=== PATIENT | female | born 2000 | race Caucasian/White ===

== ENCOUNTER 2022-02-11 18:36 | Emergency (ER) | payer BC, SELFPAY ==
[2022-02-11 18:47] VITALS: BP 134/82; PULSE 80; RESP 16; TEMP 37.2; O2SAT 99; BMI 22.0
--- NOTE | 2022-02-11 19:00 | W.ED.ABDPA2 ---
HPI - Abdominal Pain General: Chief Complaint: Abdominal Pain Stated Complaint: UTI ABD Pain Time Seen by Provider: 02/11/22 18:57 History of Present Illness: 21-year-old female comes in today with complaints of bilateral flank pain, worse on the left, blood in the urine and recurrent urinary tract infections for the last 6 months. Patient reports for the last week she has had worsening discomfort and blood noted in the urine. Patient was last treated for urinary tract infection 6 months ago. Last menstrual period was 1 month ago. Associated Symptoms: Reports hematuria; Denies fever(s) Related Data: Date of Last Menstrual Period: 01/11/22 Review of Systems General: Reports: 10 or more systems reviewed and unremarkable except in HPI and below Const: Denies: fever(s) ENMT: Denies: throat pain Card: Denies: chest pain Resp: Denies: dyspnea GI: Reports: abdominal pain : Reports: flank pain and hematuria Skin/Breast: Denies: rash [facility] Female Reproductive History: Date of last menstrual period: 01/11/22 Physical Exam Const: COMMON NORMALS: alert HENMT: COMMON NORMALS: normocephalic HEAD & SCALP: normocephalic Neck/C-Spine: COMMON NORMALS: full ROM Lymph: LYMPHATIC: no lymphadenopathy noted Resp: COMMON NORMALS: normal respiratory effort and clear to auscultation bilaterally AUSCULTATION: clear to auscultation bilaterally Cardio: COMMON NORMALS: regular rate and regular rhythm RATE: regular rate RHYTHM: regular rhythm GI: COMMON NORMALS: Soft to palpation and non-tender PALPATION: Yes Soft to palpation : BLADDER/KIDNEY EXAM: Yes CVA tenderness Back/Pelvis: GENERAL BACK: Yes CVA tenderness Extremity: GENERAL: Yes normal exam except as noted Neuro: SENSORIUM/ORIENTATION: Yes alert Skin: COMMON NORMALS: no rashes or lesions noted GENERAL SKIN EXAM: no rashes or lesions noted Course Vital Signs: Vital signs: Vital Signs Temperature 98.7 F 02/11/22 21:41 Pulse Rate 65 02/11/22 21:41 Respiratory Rate 20 H 02/11/22 21:41 Blood Pressure 112/63 02/11/22 21:41 Pulse Oximetry 98 02/11/22 21:41 MDM - Abdominal Pain Medical Decision Making 21-year-old female comes in today for complaints of blood in urine. On exam abdomen soft nontender. No CVA tenderness. Respirations are even lungs are clear to auscultation. Differential diagnosis includes UTI, renal calculi, pyelonephritis. Urinalysis showed large amount of white blood cells with minimal red blood cells. Patient did have a positive test. CBC and CMP were unremarkable. Patient was treated with IV fluids and a dose of Rocephin IV. Ultrasound of the kidneys indicated no significant hydronephrosis or renal calculi. Ultrasound of the pelvis indicated no intrauterine or ectopic at this time. hCG was 14 which could indicate either a lost or very early . Patient is ABO positive and no need for RhoGAM is noted. Recommended patient recheck with primary care in 1 week. Take antibiotics as directed for urinary tract infection. Return to the ER for high fever greater than 100.4, or bleeding greater than 1 pad an hour. Lab Data : 02/11/22 19:13 02/11/22 19:13 Labs/Radiology: Radiology Impressions Ultrasound 02/11/22 20:15 IMPRESSION: 1. No intrauterine or ectopic gestation identified. This could represent a completed spontaneous miscarriage. An occult ectopic cannot be entirely excluded. Follow-up with quantitative beta HCG values recommended. Renal Ultrasound 02/11/22 20:15 IMPRESSION: 1. Mild right hydronephrosis is most likely physiologic in this patient. 2. Otherwise unremarkable exam. ADDENDUM: 02/11/222231 This study is correlated to the ultrasound Ob on 02/11/2022. There is no visible intrauterine or ectopic . The mild right hydronephrosis is of uncertain etiology. If there is clinical concern for a renal calculus, a CT scan can be performed, once the patient is confirmed to not be . Laboratory Results WBC 10.4 10^3/uL (4.0-10.0) H 02/11/22 19:13 RBC 4.55 10^6/uL (4.1-5.3) 02/11/22 19:13 Hgb 13.4 g/dL (11.5-15.3) 02/11/22 19:13 Hct 39.7 % (37.0-47.0) 02/11/22 19:13 MCV 87.3 fl (81-99) 02/11/22 19:13 MCH 29.5 pg (28.0-34.0) 02/11/22 19:13 MCHC 33.8 g/dL (30.0-36.0) 02/11/22 19:13 RDW 12.2 % (12.1-15.1) 02/11/22 19:13 Plt Count 195 10^3/cmm (130-400) 02/11/22 19:13 MPV 11.9 fL (7.4-10.4) H 02/11/22 19:13 Neut % (Auto) 62.9 % 02/11/22 19:13 Lymph % (Auto) 28.9 % 02/11/22 19:13 [place] % (Auto) 6.3 % 02/11/22 19:13 Eos % (Auto) 1.2 % 02/11/22 19:13 Baso % (Auto) 0.5 % 02/11/22 19:13 Neut # (Auto) 6.55 10^3/uL (1.8-7.7) 02/11/22 19:13 Lymph # (Auto) 3.0 10^3/uL (0.8-4.8) 02/11/22 19:13 [place] # (Auto) 0.7 10^3/uL (0.2-0.9) 02/11/22 19:13 Eos # (Auto) 0.1 10^3/uL (0.0-0.8) 02/11/22 19:13 Baso # (Auto) 0.1 10^3/uL (0.0-0.1) 02/11/22 19:13 Nucleated RBC % (auto) 0 % 02/11/22 19:13 Nucleated RBCs # 0.0 /100WBC 02/11/22 19:13 Sodium 137 mmol/L (136-145) 02/11/22 19:13 Potassium 3.8 mmol/L (3.5-5.1) 02/11/22 19:13 Chloride 103 mmol/L (98-107) 02/11/22 19:13 Carbon Dioxide 22 mmol/L (22-29) 02/11/22 19:13 Anion Gap 15.8 (5-19) 02/11/22 19:13 BUN 9 mg/dL (6-20) 02/11/22 19:13 Creatinine 0.7 mg/dL (0.5-0.9) 02/11/22 19:13 GFR Calculation 104.6 mL/min (90-130) 02/11/22 19:13 Glucose 93 mg/dL (65-115) 02/11/22 19:13 Calculated Osmolality 282 mOsm/kg (285-295) L 02/11/22 19:13 Calcium 9.0 mg/dL (8.5-10.5) 02/11/22 19:13 Total Bilirubin 0.5 mg/dL (0.15-1.2) 02/11/22 19:13 AST 15 U/L (0-32) 02/11/22 19:13 ALT 12 U/L (0-33) 02/11/22 19:13 Alkaline Phosphatase 66 IU/L (35-105) 02/11/22 19:13 Total Protein 8.0 g/dL (6.6-8.7) 02/11/22 19:13 Albumin 4.6 g/dL (3.5-5.2) 02/11/22 19:13 Globulin 3.4 g/dL (1.3-4.6) 02/11/22 19:13 Lipase 44 U/L (13-60) 02/11/22 19:13 HCG, Qual Positive (Negative) H 02/11/22 19:25 Ser , Semi-Qnt 14.17 mIU/mL 02/11/22 19:13 Urine Color Yellow (Yellow) 02/11/22 19:20 Urine Appearance Hazy (CLEAR) A 02/11/22 19:20 Urine pH 6 (5-7) 02/11/22 19:20 Ur Specific Mayer 1.015 (1.005-1.030) 02/11/22 19:20 Urine Protein Neg (Negative) 02/11/22 19:20 Urine Glucose (UA) Norm (Normal) 02/11/22 19:20 Urine Ketones 1+ (Negative) H 02/11/22 19:20 Urine Blood Neg (Negative) 02/11/22 19:20 Urine Nitrate Negative (Negative) 02/11/22 19:20 Urine Bilirubin Neg (Negative) 02/11/22 19:20 Urine Urobilinogen Neg mg/dL (Negative) 02/11/22 19:20 Ur Leukocyte Esterase 1+ (Negative) H 02/11/22 19:20 Urine RBC Rare /hpf (0-2) 02/11/22 19:20 Urine WBC 15-25 /hpf (0-5) H 02/11/22 19:20 Ur Squamous Epith Cells 0-4 /hpf (0-5) H 02/11/22 19:20 Amorphous Sediment Not Reportable 02/11/22 19:20 Urine Bacteria None /hpf (NONE) 02/11/22 19:20 Blood Type A Positive 02/11/22 19:13 Rho(D) Type Positive 02/11/22 19:13 Discharge Plan Discharge Patient Disposition: Home Clinical Impression: UTI (urinary tract infection) in in first trimester Condition: Stable Prescriptions: New cephalexin 500 mg capsule 500 mg PO BID 3 Days Qty: 6 0RF Discharge Orders: Discharge ED (Routine); Ordered 02/11/22 Ordered By: Chris Carcamo Discharge Diet: Usual diet Discharge Activity: Increase activity as tolerated Patient Instructions: Threatened Miscarriage (ED) Activity Restrictions/Additional Instructions: Drink plenty of fluids. Avoid alcohol and smoking during . Follow-up with primary care in 3 to 5 days for recheck. Return to ER for new concerns or worsening symptoms such as high fever greater than 100.4, or bleeding greater than 1 pad an hour. Coding Level of Care Code ED Public Accountant for Chg Fwd Exam Comprehensive
[2022-02-11 19:21] LABS: Basophils # 0.1 10^3/uL (0.0-0.1); Basophils % 0.5 %; Eosinophils # 0.1 10^3/uL (0.0-0.8); Eosinophils % 1.2 %; Hematocrit 39.7 % (37.0-47.0); Hemoglobin 13.4 g/dL (11.5-15.3); Lymphocytes % 28.9 %; Mean Corpuscular HGB Conc 33.8 g/dL (30.0-36.0); Mean Corpuscular Hemoglobin 29.5 pg (28.0-34.0); Mean Corpuscular Volume 87.3 fl (81-99); Mean Platelet Volume 11.9 fL (7.4-10.4); Monocytes # 0.7 10^3/uL (0.2-0.9); Monocytes % 6.3 %; Neutrophils # 6.55 10^3/uL (1.8-7.7); Neutrophils % 62.9 %; Nucleated Red Blood Cells % 0 %; Platelet Count 195 10^3/cmm (130-400); Red Blood Count 4.55 10^6/uL (4.1-5.3); Red Cell Distribution Width 12.2 % (12.1-15.1); White Blood Count 10.4 10^3/uL (4.0-10.0)
[2022-02-11 19:41] LABS: Alanine Aminotransferase 12 U/L (0-33); Albumin Level 4.6 g/dL (3.5-5.2); Alkaline Phosphatase 66 IU/L (35-105); Anion Gap 15.8 (5-19); Aspartate Amino Transferase 15 U/L (0-32); Blood Urea Nitrogen 9 mg/dL (6-20); Carbon Dioxide 22 mmol/L (22-29); Chloride 103 mmol/L (98-107); Globulin 3.4 g/dL (1.3-4.6); Glomerular Filtration Rate 104.6 mL/min (90-130); Glucose 93 mg/dL (65-115); Lipase 44 U/L (13-60); Osmolality Calculated 282 mOsm/kg (285-295); Potassium 3.8 mmol/L (3.5-5.1); Sodium 137 mmol/L (136-145); Total Bilirubin 0.5 mg/dL (0.15-1.2)
[2022-02-11 19:43] LABS: Add Urine Microscopic? YES; Bilirubin Urine Neg (Negative); Blood Urine Neg (Negative); Glucose Urine UA Norm (Normal); Ketones Urine 1+ (Negative); Leukocyte Esterase Urine 1+ (Negative); Nitrate Urine Negative (Negative); Protein Urine Neg (Negative); Specific Gravity, Urine 1.015 (1.005-1.030); Urine Appearance Hazy (CLEAR); Urine Color Yellow (Yellow); Urobilinogen Urine Neg (Negative); pH Urine 6 (5-7)
[2022-02-11 19:44] LABS: Add Urine Culture? Yes; RBC Urine RARE /hpf (0-2); Squamous Epithelial Cell Urine 0-4 /hpf (0-5); WBC Urine 15-25 /hpf (0-5)
[2022-02-11] MEDS: sodium chloride 0.9% 1,000 ML 999 ML IV (19:45)
[2022-02-11] MEDS: ondansetron 2 mg/ML SDV 2 mL 4 MG IVP (19:45)
[2022-02-11] MEDS: ketorolac 30 mg/mL INJ 15 MG IVP (19:45)
[2022-02-11 20:00] LABS: HCG, Serum Qual Positive (Negative)
[2022-02-11] MEDS: cefTRIAXone 1,000 MG in sodium chloride 0.9% (plus) 50 ML 100 MG IV (20:04)
--- NOTE | 2022-02-11 20:15 | USR_ITS ---
PROCEDURE INFORMATION: Exam: US Retroperitoneal; Complete; Kidneys and Bladder Exam date and time: 02/11/2022 8:37 PM Age: 21 years old Clinical indication: Other: Hematuria; ; Additional info: Hematuria, R/O hydronephrosis TECHNIQUE: Imaging protocol: Real-time ultrasound of the retroperitoneum with image documentation. Complete exam focused on the kidneys and bladder. COMPARISON: US pelvic complete* [id number] 04/03/2020 9:13 AM FINDINGS: Right kidney: The right kidney measures 9.5 x 5.0 x 5.4 cm. Mild right hydronephrosis. No mass, cyst, or calculus visualized. Left kidney: The left kidney measures 10.8 x 4.5 x 5.8 cm. No mass, cyst, calculus, or hydronephrosis. Urinary bladder: The bladder is partially distended and within normal limits. Estimated bladder volume 45 cc. US/US renal BI with PV bladder IMPRESSION: 1. Mild right hydronephrosis is most likely physiologic in this patient. 2. Otherwise unremarkable exam.
--- NOTE | 2022-02-11 20:15 | USR_ITS ---
PROCEDURE INFORMATION: Exam: US First Trimester, Transabdominal Exam date and time: 02/11/2022 8:52 PM Age: 21 years old Clinical indication: Lmp or gestational age (in weeks): 4w 3d; Antepartum complications; Bleeding; ; Additional info: Vaginal bleeding TECHNIQUE: Imaging protocol: Real-time transabdominal obstetrical ultrasound of the maternal pelvis and a first trimester , less than 14 weeks 0 days, with image documentation. COMPARISON: US renal BI with PV bladder 02/11/2022 8:37 PM FINDINGS: Gestation: No intrauterine or ectopic gestation identified. MATERNAL: Uterus: The uterus measures 6.1 x 6.5 x 4.6 cm. No intrauterine gestation identified. Multiple shadowing calcifications are noted in the endometrium in the lower uterine segment. Endometrial thickness 6.5 mm. Cervix: The cervix is within normal limits. Right ovary/adnexa: The right ovary measures 5.5 x 2.1 x 2.0 cm with normal blood flow. Left ovary/adnexa: The left ovary measures 1.9 x 3.2 x 2.5 cm with normal blood flow. Intraperitoneal space: No intraperitoneal free fluid. Urinary bladder: Urinary bladder is partially decompressed and within normal limits. US/US OB <= 14 weeks fetus [id number] IMPRESSION: 1. No intrauterine or ectopic gestation identified. This could represent a completed spontaneous miscarriage. An occult ectopic cannot be entirely excluded. Follow-up with quantitative beta HCG values recommended.
[2022-02-11 20:35] LABS: HCG Quantitative 14.17 mIU/mL
[2022-02-11 21:41] VITALS: BP 112/63; PULSE 65; RESP 20; TEMP 37.1; O2SAT 98
== END 2022-02-11 21:43 | disposition home or self-care (01) ==
PROVIDERS: Emergency Medicine; Emergency Provider Nurse Practitioner Family
DX: O23.41 Unspecified infection of urinary tract in pregnancy, first trimester (principal); N39.0 Urinary tract infection, site not specified; Z3A.00 Weeks of gestation of pregnancy not specified
CPT/HCPCS: 76770; 76801; 76857; 80053; 81001; 83690; 84702; 84703; 85025; 86900; 87077; 87086; 87186; 96365; 96375; 99283; J0696; J1885; J2405; J7030